=== PATIENT | female | born 1960 | race Caucasian/White ===

== ENCOUNTER → 2019-11-14 10:47 | Outpatient (BNVA) | payer MEDICARE, MEDICAID, SELFPAY | PROVIDERS: Family Provider Family Medicine; PCP Family Medicine; Visit Provider Nurse Practitioner | DX: F33.1 Major depressive disorder, recurrent, moderate (principal); F43.12 Post-traumatic stress disorder, chronic; R41.83 Borderline intellectual functioning | CPT/HCPCS: 99214 ==

== ENCOUNTER 2019-12-11 07:56 | Day surgery (SDC) | payer MEDICARE, MEDICAID, SELFPAY ==
[2019-12-11 08:20] VITALS: BP 145/83; PULSE 75; RESP 18; TEMP 36.9; O2SAT 95; BMI 38.7
--- NOTE | 2019-12-11 08:27 | ANES.PREANE2 ---
Pre-Anesthetic Assessment Pre-Anesthetic Assessment: Height/Weight: Height 1.6 m Weight 99.337 kg Temp Pulse Resp BP Pulse Ox 98.4 F 75 18 145/83 95 12/11/19 08:20 12/11/19 08:20 12/11/19 08:20 12/11/19 08:20 12/11/19 08:20 Preop Diagnosis: GERD chronic diarrhea Proposed Procedure: Operation Date: 12/11/19 09:30 Proposed Procedures p EGD/Colon 51034 [id number] K21.9 K52.9(Not Applicable) - Roman Brady MD s Colonoscopy(Not Applicable) - Roman Brady MD Familial anesthetic complications: woke up too soon the last time Was Beta Nadiya taken within 24 hours: Yes Last intake: Intake Last Liquid Date 12/11/19 Last Liquid Time 06:00 Social: Social History: Alcohol (socially) and Tobacco (Quit 5 years ago) Exam: Pre-Anes Outpt Exam: alert and oriented x 3 Airway: Submandibular: WNL Cervical ROM: WNL MP: 2 Dentition: Other Additional comments: front denture Pulmonary: Pulmonary: Asthma (used inhaler 3 days ago for wheezing) and COPD CV/HEM: CV/HEM: Arrythmia and HTN : : None reported Hepatic: Comments: fatty liver GI: GI: GERD (controlled with prilosec) and PUD Metabolic: Metabolic: Morbid obesity and Thyroid (nodule, trouble swallowing) Musc/skel: Musc/skel: Lower Back Pain, OA/DJD and None reported Neuropsych: Neuropsych: Anxiety, Bipolar and TIA (x3 2011 difficulty finding the right words and memory problems) Anesthetic Plan: ASA status: 3 Anesthesia: Anesthesia Evaluation and MAC Risk of > 500 ml blood loss (7ml/kg in children): No PFSH Anesthesia PFSH: Medical History (Updated 11/14/19 @ 11:38 by Krissy Gomez PMHNP) Anxiety Asthma Bipolar disorder Borderline intellectual functioning Chronic diarrhea GERD (gastroesophageal reflux disease) Hypertension Major depressive disorder, recurrent, moderate Osteoarthritis Personal history of transient ischemic attack (TIA), and cerebral infarction without residual deficits Post-traumatic stress disorder, chronic Surgical History H/O colonoscopy age 40 H/O esophagogastroduodenoscopy yrs ago H/O knee surgery left meniscus repair 01/2011 Hx of cholecystectomy 05/2019 Hx of tubal ligation Social History Smoking and tobacco status: former smoker Alcohol intake: never Lives independently: Yes Marital status: Single Current occupational status: disabled Data Anesthesia Cardiac Studies: No Data to Display
[2019-12-11] MEDS: sodium chloride 0.9% 1,000 ML 30 ML (08:29)
--- NOTE | 2019-12-11 08:44 | W.PM.OPSUD ---
Surgery/Procedure H&P Update DATE OF PROCEDURE: December 11, 2019 DATE H&P PERFORMED: 11/13/19 H&P UPDATE INFORMATION: H&P completed within last 30 days and No changes to prior documentation PREOP DIAGNOSIS: GERD chronic diarrhea PLANNED PROCEDURE: Operation Date: 12/11/19 09:30 Proposed Procedures p EGD/Colon [id number] K21.9 K52.9(Not Applicable) - Roman Brady MD s Colonoscopy(Not Applicable) - Roman Brady MD
[2019-12-11 09:17] VITALS: BP 106/64; PULSE 73; RESP 16; TEMP 36.3; O2SAT 96
[2019-12-11 09:21] VITALS: BP 102/66; PULSE 70; RESP 16; O2SAT 98
--- NOTE | 2019-12-11 09:41 | ANE.PACU2 ---
 Inpatient post-anesthesia follow up: Airway intact: Yes Vital signs: Temperature 97.3 F Pulse Rate 70 Respiratory Rate 16 Blood Pressure 102/66 Pulse Oximetry 98 Oxygen Delivery Me thod Room Air Oxygen Flow Rate 2 Fraction of Inspir ed Oxygen Hydration adequate: Yes Nausea and vomiting: No Pain level: 2 Mental status: Baseline
== END 2019-12-11 09:35 | disposition home or self-care (01) ==
PROVIDERS: Family Provider Family Medicine; PCP Family Medicine; Visit Provider Surgery
PROC: 0DJ08ZZ Inspection of Upper Intestinal Tract, Via Natural or Artificial Opening Endoscopic (ICD-10-PCS; CPT 43235; principal; 2019-12-11 09:30)
PROC: 0DJD8ZZ Inspection of Lower Intestinal Tract, Via Natural or Artificial Opening Endoscopic (ICD-10-PCS; CPT 45378; 2019-12-11 09:30)
DX: K52.9 Noninfective gastroenteritis and colitis, unspecified (principal); K21.9 Gastro-esophageal reflux disease without esophagitis; K29.70 Gastritis, unspecified, without bleeding; D12.2 Benign neoplasm of ascending colon; D12.4 Benign neoplasm of descending colon; K57.30 Diverticulosis of large intestine without perforation or abscess without bleeding; K64.8 Other hemorrhoids; Z79.82 Long term (current) use of aspirin; J45.909 Unspecified asthma, uncomplicated; I10 Essential (primary) hypertension; Z86.73 Personal history of transient ischemic attack (TIA), and cerebral infarction without residual deficits; Z87.891 Personal history of nicotine dependence
CPT/HCPCS: 12345; 43239; 45380; 82274; 83630; 87177; 87329; 87493; 87505; 88305; J2704; J7030

== ENCOUNTER → 2020-02-06 08:15 | Outpatient (BNVA) | payer MEDICARE, MEDICAID, SELFPAY | PROVIDERS: Family Provider Family Medicine; PCP Family Medicine; Visit Provider Nurse Practitioner | DX: F43.12 Post-traumatic stress disorder, chronic (principal); F33.1 Major depressive disorder, recurrent, moderate; R41.83 Borderline intellectual functioning | CPT/HCPCS: 99214 ==

== ENCOUNTER → 2020-02-20 14:22 | Outpatient (BNVA) | payer MEDICARE, MEDICAID, SELFPAY | PROVIDERS: Family Provider Family Medicine; PCP Family Medicine; Referring Provider Nurse Practitioner; Visit Provider Orthopaedic Surgery | DX: M25.562 Pain in left knee (principal); M13.862 Other specified arthritis, left knee; M13.861 Other specified arthritis, right knee | CPT/HCPCS: 73560; 73565 ==

== ENCOUNTER 2020-02-27 12:28 | Outpatient (CLI) | payer MEDICARE, MEDICAID, SELFPAY ==
--- NOTE | 2020-02-27 12:36 | MR_ITS ---
WS: [id number] MRI LEFT KNEE HISTORY: pain, prior meniscal tear repair in 2010. Recent injury October 2019. COMPARISON: 01/15/2011, knee radiographs 02/20/2020 Anterior cruciate ligament: Intact. Posterior cruciate ligament: Intact. Medial collateral ligament: Intact MCL. There is increase fluid signal on both sides of the MCL and t he MCL is displaced from the joint by an extruded meniscus. Posterior lateral corner structures: Intact. Medial menisci: Increased signal in the posterior horn. Fraying along the articular surface. There ar e no fluid like areas of signal extending through the meniscus. There is increased moderate signal ce ntrally which may be from the prior repair and intrasubstance degeneration. Cannot confirm a complete full-thickness tear. Intrasubstance degeneration in the anterior horn. The meniscus is partially ext ruded from the joint line extending just superior and inferior to the joint line. Lateral meniscus: Intact. Normal signal, size and shape. Extensor mechanism: Normal biceps tendon. Mild proximal patellar tendinitis. Fluid and soft tissue: Small suprapatellar joint effusion. Small Kauffman's cyst. Osseous and articular structures: Patellofemoral compartment: Mild narrowing of patellofemoral compartment. Very mild loss of cartilage over the medial and lateral patellar facets. Medial compartment: Moderate narrowing of the medial compartment. Subchondral edema along the medial tibial plateau and the femoral condyle weightbearing surface. Small osteophytes from the medial tibia l plateau and femoral condyle. There is significant loss of cartilage. Progression of cartilage loss over the femoral condyle along with osteophytes and small amount of marrow edema. Lateral compartment: Mild narrowing lateral compartment with thinning and fissuring of the cartilage. Lobulated mixed signal intensity lesion in the proximal tibial metaphysis measures 18 x 21 mm. Consis tent with an enchondroma which is similar to prior studies. MR/MR knee LT wo con* [id number] IMPRESSION: 1. Status post surgical repair of the posterior medial meniscus. Progression o f increased signal in the meniscus. No fluid like signal abnormality extending through the meniscus although there is increase in intrasubstance degeneration and fraying. Progression of cartilage loss over the posterior medial femoral co ndyle also. 2. Partially extruded medial meniscus. 3. Mildly displaced MCL due to a partially extruded meniscus and medial compar tment osteophytes. 4. Moderate degenerative changes in medial compartment with significant loss o f cartilage, subchondral edema and osteophytes. 5. Small joint effusion and small Kauffman's cyst. 6. Mild bilateral chondromalacia patella.
== END 2020-02-27 12:29 | disposition home or self-care (01) ==
LOC: RADWPI 12:32
PROVIDERS: Family Provider Family Medicine; PCP Family Medicine; Visit Provider Orthopaedic Surgery
DX: M25.462 Effusion, left knee (principal); M22.42 Chondromalacia patellae, left knee; M71.22 Synovial cyst of popliteal space [Baker], left knee
CPT/HCPCS: 73721

== ENCOUNTER 2020-04-01 06:11 | Day surgery (SDC) | payer MEDICARE, MEDICAID, SELFPAY ==
[2020-03-31 13:14] VITALS: BMI 36.5
[2020-04-01] VITALS (8 sets, daily range): BP systolic 101–121; BP diastolic 62–82; PULSE 69–95; RESP 16–20; TEMP 36.3–37.1; O2SAT 90–100
--- NOTE | 2020-04-01 06:39 | W.PM.OPSUD ---
Surgery/Procedure H&P Update DATE OF PROCEDURE: April 01, 2020 DATE H&P PERFORMED: 03/28/20 H&P UPDATE INFORMATION: I have reviewed H&P completed within last 30 days, I have examined patient prior to procedure and No changes to prior documentation PREOP DIAGNOSIS: left knee medial meniscal tear PRIMARY INDICATION FOR PROCEDURE: Left knee medial meniscal tear and persistent medialleft knee medial meniscal tear and persistent medial sided left knee pain sided left knee pain PLANNED PROCEDURE: Operation Date: 04/01/20 07:00 Proposed Procedures p Left Knee Arthroscopy with medial menisectomy [id number](Left) - Franc Patel DO
--- NOTE | 2020-04-01 06:40 | PM.OP ---
Operative Report Date of procedure: April 01, 2020 Pre-op Diagnosis: left knee medial meniscal tear Post-op diagnosis: same Procedure Done: Diagnostic arthroscopy with resection of medial meniscal tear Pathology: none sent Surgeon: Franc Patel Anesthesia: General Estimated blood loss (mL): 5 Tourniquet time (min): 21 (at 300 mmHg pressure) Complications: No apparent complications Findings: Moderate synovitis left knee Grade 3 patellofemoral DJD Grade 3 to grade 4 DJD medial compartment left knee with areas of full-thickness wear on the tibial plateau. Macerated tear posterior horn medial meniscus. Anterior and posterior cruciate ligaments intact though some laxity noted to ACL. Lateral compartment with intact lateral meniscus minimal free edge thinning midportion of the meniscus but no tearing. Cartilage surfaces intact with no fissuring in the lateral compartment. No loose bodies Condition: stable Disposition: PACU Brief History: 59-year-old white female with approximate 3 months history of twisting her left knee and since that time having persistent [id number] white female with approximately 3 months history of twisting her left knee and since that time having persistent medial knee pain. X-ray show mild degenerative changes but not [id number]. MRI shows increased signal in the medial meniscus. There is some thinning of the cartilage in the medial compartment. Risk, benefits and potential complications of surgery were discussed with the patient. Complications include but are not limited failure to relieve all pain, infection, nerve/blood vessel/tendon injury, possible need for further surgery at a later date. Medical complications include blood clots, heart attack, stroke risk up to including . All questions were answered patient agreeable to proceed with surgery. Procedure: 600 mg clindamycin Patient identified. Surgical site is signed. OR permit is signed. Patient received 600 mg of Clindamycin intravenously for surgical prophylaxis. Patient is taken to the Operating Room. The patient is placed on the Operating Room table. Patient was placed under general anesthesia without difficulty. Tourniquet placed at the upper aspect of the left thigh. Patient was then sterilely prepped and draped in usual fashion. Time out was performed. The operative limb is exsanguinated using Esmarch bandage. Tourniquet was inflated to 300 mm of mercury pressure. Standard anteromedial and anterolateral portals are made. The portal sites were anesthetized with 10 mL total of a 1 to 1 mixture of 10 cc 1% lidocaine with epinephrine and 0.5 % ropivicaine in the soft tissues only. Arthroscope inserted into the anterolateral portal. The knee was distended using arthroscopic pump containing sterile saline and dilute epinephrine solution. Under arthroscopic visualization incidental partial synovectomy in the anterior, medial and lateral aspects of the knee was performed to provide adequate visualization. Patient had a macerated tear of the posterior horn of the medial meniscus.The medial meniscal tear was resected back to a stable rim using meniscal biters and a motorized shaver.. The knee was irrigated with sterile saline. The portal sites, two in number, were closed with interrupted 4-0 nylon sutures. The knee was injected with 10 cc of 0.5% ropivicaine and 40 mg of Kenalog for postoperative analgesia. Triple antibiotic ointment was applied followed by sterile dressings. The tourniquet was deflated during application of dressings. Patient was awakened from anesthesia. Patient was taken to the Recovery Room. Patient tolerated procedure well. All counts were correct
[2020-04-01] MEDS: ketorolac 30 mg/mL INJ IVP (06:41)
[2020-04-01] MEDS: sodium chloride 0.9% 1,000 ML 30 ML IV (06:43)
[2020-04-01] MEDS: clindamycin 600 MG/50 ML PREMIX 100 MG IV (07:05)
--- NOTE | 2020-04-01 07:10 | ANES.PREANE2 ---
Pre-Anesthetic Assessment Pre-Anesthetic Assessment: Height/Weight: Height 1.6 m Weight 93.44 kg Temp Pulse Resp BP Pulse Ox 98.2 F 69 18 121/77 94 04/01/20 06:27 04/01/20 06:27 04/01/20 06:27 04/01/20 06:27 04/01/20 06:27 Preop Diagnosis: left knee medial meniscal tear Proposed Procedure: Operation Date: 04/01/20 07:00 Proposed Procedures p Left Knee Arthroscopy with medial menisectomy [id number](Left) - Franc Patel, DO Was Beta Nadiya taken within 24 hours: Yes Last intake: Intake Last Liquid Date 03/31/20 Last Liquid Time 23:00 Last Solid Date 03/31/20 Last Solid Time 18:00 Social: Social History: No alcohol and No tobacco Exam: Pre-Anes Outpt Exam: alert, oriented x 3, clear to auscultation bilaterally and regular rate & rhythm Airway: Submandibular: WNL Cervical ROM: WNL MP: 2 Dentition: Partials History/ROS: No significant complaints Pulmonary: Pulmonary: None reported CV/HEM: CV/HEM: HTN : : None reported Hepatic: Hepatic: None reported GI: GI: GERD Metabolic: Metabolic: None reported Musc/skel: Musc/skel: None reported Neuropsych: Neuropsych: CVA (3 TIA's) and None reported Anesthetic Plan: ASA status: 3 Anesthesia: General Risk of > 500 ml blood loss (7ml/kg in children): Yes, adequate IV access and fluids planned Meds/Allergies Current Medications: Current Medications Generic Name Dose Route Start Last Admin Trade Name Freq PRN Reason Stop Dose Admin Sodium Chloride 1,000 mls @ 30 ml s/hr 04/01/20 06:45 04/01/20 06:43 Sodium Chloride 0.9% IV 04/02/20 06:44 30 mls/hr .Q24H QUAN Administration PFSH Anesthesia PFSH: Medical History Anxiety Asthma Bipolar disorder Borderline intellectual functioning Chronic diarrhea GERD (gastroesophageal reflux disease) Hypertension Major depressive disorder, recurrent, moderate Osteoarthritis Personal history of transient ischemic attack (TIA), and cerebral infarction without residual deficits Post-traumatic stress disorder, chronic Surgical History H/O colonoscopy 12/11/2019: Polyp ascending colon and descending colon, scattered diverticulosis entire colon H/O esophagogastroduodenoscopy 12/11/2019: Gastritis H/O knee surgery left meniscus repair 01/2011 Hx of cholecystectomy 05/2019 Hx of tubal ligation Family History Other Diabetes Heart disease Hypertension Denies family history of Anesthesia complication Bleeding disorder Social History Smoking and tobacco status: former smoker Alcohol intake: never Lives independently: Yes Marital status: Single Current occupational status: disabled Data Anesthesia Cardiac Studies: No Data to Display
[2020-04-01] MEDS: EPINEPHrine 1 mg/mL INJ XX (07:47)
[2020-04-01] MEDS: triamcinolone 40 mg/mL SDV IM (07:48)
[2020-04-01] MEDS: neomycin-poly-bacitracin oint 28 gm 1 APPLIC TOPICAL (07:50)
== END 2020-04-01 09:19 | disposition home or self-care (01) ==
PROVIDERS: PCP Family Medicine; Visit Provider Orthopaedic Surgery
PROC: (CPT 29870; principal; 2020-04-01 07:00)
DX: S83.242A Other tear of medial meniscus, current injury, left knee, initial encounter (principal); X58.XXXA Exposure to other specified factors, initial encounter; I10 Essential (primary) hypertension; K21.9 Gastro-esophageal reflux disease without esophagitis; Z86.73 Personal history of transient ischemic attack (TIA), and cerebral infarction without residual deficits; F41.9 Anxiety disorder, unspecified; M19.90 Unspecified osteoarthritis, unspecified site; Z87.891 Personal history of nicotine dependence; Z79.82 Long term (current) use of aspirin; F33.9 Major depressive disorder, recurrent, unspecified
CPT/HCPCS: 29881; 12345; 96365; 96374; J0131; J0171; J0330; J1100; J1885; J2001; J2405; J2704; J2765; J2795; J3010; J3301; J3490; J3535; J7030

== ENCOUNTER → 2020-04-29 07:43 | Outpatient (BNVA) | payer MEDICARE, MEDICAID, SELFPAY | PROVIDERS: PCP Family Medicine; Visit Provider Nurse Practitioner | DX: F43.12 Post-traumatic stress disorder, chronic (principal); F33.1 Major depressive disorder, recurrent, moderate; R41.83 Borderline intellectual functioning | CPT/HCPCS: 99213 ==

== ENCOUNTER → 2020-07-31 08:24 | Outpatient (BNVA) | payer MEDICARE, MEDICAID, SELFPAY | PROVIDERS: PCP Family Medicine; Visit Provider Nurse Practitioner | DX: R41.83 Borderline intellectual functioning (principal); F43.12 Post-traumatic stress disorder, chronic; F33.1 Major depressive disorder, recurrent, moderate | CPT/HCPCS: 99214 ==

== ENCOUNTER → 2020-10-29 07:56 | Outpatient (BNVA) | payer MEDICARE, MEDICAID, SELFPAY | PROVIDERS: PCP Family Medicine; Visit Provider Nurse Practitioner | DX: R41.83 Borderline intellectual functioning (principal); F43.12 Post-traumatic stress disorder, chronic; F33.1 Major depressive disorder, recurrent, moderate | CPT/HCPCS: 99213 ==

== ENCOUNTER → 2021-02-25 11:41 | Outpatient (BNVA) | payer MEDICARE, MEDICAID, SELFPAY | PROVIDERS: PCP Family Medicine; Visit Provider Nurse Practitioner | DX: F43.12 Post-traumatic stress disorder, chronic (principal); F33.1 Major depressive disorder, recurrent, moderate; R41.83 Borderline intellectual functioning | CPT/HCPCS: 99214 ==

== ENCOUNTER → 2021-05-20 07:16 | Outpatient (BNVA) | payer MEDICARE, MEDICAID, SELFPAY | PROVIDERS: PCP Family Medicine; Visit Provider Nurse Practitioner | DX: F43.12 Post-traumatic stress disorder, chronic (principal); F33.1 Major depressive disorder, recurrent, moderate; R41.83 Borderline intellectual functioning | CPT/HCPCS: 99214 ==

== ENCOUNTER → 2021-08-13 07:58 | Outpatient (BNVA) | payer MEDICARE, MEDICAID, SELFPAY | PROVIDERS: PCP Family Medicine; Visit Provider Nurse Practitioner | DX: F43.12 Post-traumatic stress disorder, chronic (principal); F33.1 Major depressive disorder, recurrent, moderate; R41.83 Borderline intellectual functioning | CPT/HCPCS: 99214 ==

== ENCOUNTER → 2021-11-05 08:27 | Outpatient (BNVA) | payer MEDICARE, MEDICAID, SELFPAY | PROVIDERS: PCP Family Medicine; Visit Provider Nurse Practitioner | DX: F43.12 Post-traumatic stress disorder, chronic (principal); F33.1 Major depressive disorder, recurrent, moderate; R41.83 Borderline intellectual functioning | CPT/HCPCS: 99214 ==

== ENCOUNTER → 2022-02-04 07:24 | Outpatient (BNVA) | payer MEDICARE, MEDICAID, SELFPAY | PROVIDERS: PCP Family Medicine; Visit Provider Nurse Practitioner | DX: F43.12 Post-traumatic stress disorder, chronic (principal); F33.1 Major depressive disorder, recurrent, moderate; R41.83 Borderline intellectual functioning | CPT/HCPCS: 99214 ==

== ENCOUNTER → 2022-06-16 12:11 | Outpatient (BNVA) | payer MEDICARE, MEDICAID, SELFPAY | PROVIDERS: PCP Family Medicine; Visit Provider Internal Medicine | DX: I10 Essential (primary) hypertension (principal); E78.5 Hyperlipidemia, unspecified; F17.210 Nicotine dependence, cigarettes, uncomplicated | CPT/HCPCS: 93005; 99204 ==

== ENCOUNTER 2024-08-20 13:08 | Outpatient (CLI) | payer MEDICARE, MEDICAID, SELFPAY ==
--- NOTE | 2024-08-20 13:14 | CT_ITS ---
WS: [id number] CT ABDOMEN AND PELVIS, and without IV contrast. HISTORY: ABDOMINAL AND PELVIC SWELLING TECHNIQUE: Dual phase imaging performed through the abdomen and pelvis with and without intravenous c ontrast injection. All CT scans at [facility] use at least one of these dose optimization jake hniques: automated exposure control; mA and/or kV adjustment per patient size (includes targeted exam s where dose is matched to clinical indication); or iterative reconstruction. CONTRAST: Omnipaque 350; 100 mL IV. DLP: 2059.43 mGy.cm COMPARISON: None available. Lung bases are clear. Heart size is normal. Small hiatal hernia. Liver: Mild hepatomegaly. No bile duct dilatation. Normal portal vein. Gallbladder: Prior cholecystectomy. Pancreas: Normal. Spleen: Normal. Adrenals: Normal. Right kidney: Normal. Left kidney: Normal. Abdominal Aorta: Normal. Abdomen wall: Ventral abdominal wall hernia centered at the umbilicus. Umbilical and supraumbilical h ernias contain fat only. There is increased hazy attenuation in the more superior hernia suggesting f at necrosis. Free air or free fluid: None. Lymphadenopathy: None. GI tract: Stomach is well distended with oral contrast. No small bowel obstruction. No appendicitis. Moderate scattered diverticular burden in the distal colon. No acute diverticulitis. Pelvis: No free fluid. Uterus is midline. No mass. Osseous structures: Normal. CT/CT abdomen wo/w con [id number] IMPRESSION: 1. No acute abdominal or pelvic abnormalities are identified. 2. Umbilical/supraumbilical abdominal wall hernias. Herniation of omental fat only. Stranding within the supraumbilical portion of the hernia suggesting fat necrosis. 3. Moderate distal colon diverticulosis without acute diverticulitis. 4. Prior cholecystectomy.
[2024-08-20] MEDS: iohexol 350 mg/mL 500 mL Btl (per mL) PO (13:42)
[2024-08-20 14:10] LABS: Blood Urea Nitrogen 15 mg/dL (8-23); Glomerular Filtration Rate 100.3 mL/min (90-130)
[2024-08-20] MEDS: iohexol 350 mg/mL 500 mL Btl (per mL) IV (14:26)
== END 2024-08-20 13:09 | disposition home or self-care (01) ==
LOC: RAD 13:11
PROVIDERS: PCP Family Medicine; Visit Provider Family Medicine
DX: R19.00 Intra-abdominal and pelvic swelling, mass and lump, unspecified site (principal); K42.9 Umbilical hernia without obstruction or gangrene; K57.90 Diverticulosis of intestine, part unspecified, without perforation or abscess without bleeding; Z90.49 Acquired absence of other specified parts of digestive tract
CPT/HCPCS: 74170; 82565; 84520

== ENCOUNTER 2025-07-24 14:11 | Outpatient (CLI) | payer OTHER, MEDICAID, SELFPAY ==
--- NOTE | 2025-07-24 14:18 | XR_ITS ---
WS: [id number] DEXA (DUAL ENERGY X-RAY ABSORPTIOMETRY) Bone mineral density was performed using a [employer] machine. HISTORY: ASYMPTOMATIC MENOPAUSAL STATE COMPARISON: None available. Lumbar spine BMD (L1-L4): 1.184 g/cm2 T score: 0.0 Z score: 0.5 Total hip BMD: Left: 1.059 g/cm2. T score: 0.4 Z score: 0.9 Right: 1.063 g/cm2. T score: 0.4 Z score: 0.9 10 year probability of a major osteoporotic fracture is 9.3%. XR/XR DEXA axial skeleton* [id number] IMPRESSION: NORMAL BONE MINERAL DENSITY based upon the WHO classification for females.
--- NOTE | 2025-07-24 14:18 | MM_ITS ---
WS: [id number] BILATERAL 3D TOMOSYNTHESIS DIGITAL SCREENING MAMMOGRAPHY WITH CAD CLINICAL INFORMATION: SCREENING HISTORY: Screening mammogram. No current complaints. COMPARISON: 2018 TECHNIQUE: Bilateral CC and MLO views. FINDINGS: Scattered fibroglandular densities bilaterally. No suspicious focal mass, asymmetry, calcifications, or architectural distortion. No evidence of malignancy. A few incidental punctate calcifications. MM/MM scr tomosynthesis [id number] IMPRESSION: DENSITY: There are scattered areas of fibroglandular density. BI-RADS: 2 - Benign. FOLLOW UP: 1 Year Follow-up Recommend return to annual screening mammography.
== END 2025-07-24 14:12 | disposition home or self-care (01) ==
LOC: RAD 14:14
PROVIDERS: PCP Family Medicine; Visit Provider Nurse Practitioner Family
DX: Z12.31 Encounter for screening mammogram for malignant neoplasm of breast (principal); Z13.820 Encounter for screening for osteoporosis; Z78.0 Asymptomatic menopausal state; R92.323 Mammographic fibroglandular density, bilateral breasts; R92.1 Mammographic calcification found on diagnostic imaging of breast
CPT/HCPCS: 77063; 77067; 77080